=== PATIENT | male | born 1965 | race Caucasian/White ===

== ENCOUNTER → 2016-11-20 | Outpatient (CLI) | payer OTHER ==
[~2016-11-20] MED LIST: AMLODIPINE BESY10 MG PO; HYDROCHLOROTH12.5 M3 PO; HYDROCODON-ACE1 EAC8 PO; LIDODERM 5% P1 PATCH TD; MOTRIN800 MG PO; NAPROXEN500 MG PO; OMEPRAZOLE40 M1 PO; PRAVASTATIN SOD80 MG PO; PREDNISONE20 MG PO; TRAZODONE HCL50 MG PO; ULTRACET1 TABLET PO; VALIUM5 MG PO
== END | disposition home or self-care (01) ==
LOC: AMB 09:58
DX: L72.0 Epidermal cyst (principal)
CPT/HCPCS: 88304